=== PATIENT | female | born 1985 | race Caucasian/White ===

== ENCOUNTER 2021-03-31 12:31 | Outpatient (REF) | payer MEDICAID, SELFPAY ==
--- NOTE | ~2021-03-31 | US_ITS ---
EXAMINATION: US VENOUS ULTRASOUND WITH DOPPLER LOWER EXTREMITY, BILATERAL CLINICAL INFORMATION: New onset bilateral leg edema. COMPARISON: None TECHNIQUE: Ultrasound of the deep veins is performed from the hip to the calf with compression sonography and color and pulse Doppler assessment. Spectral analysis with color-flow imaging is performed. FINDINGS: RIGHT: There is normal venous compression and respiratory variation and augmented flow. The visualized common femoral vein, superficial femoral vein, profunda femoral vein, popliteal vein, and the trifurcation region shows no evidence of deep venous thrombosis. There is no significant popliteal fossa cyst. LEFT: There is normal venous compression and respiratory variation and augmented flow. The visualized common femoral vein, superficial femoral vein, profunda femoral vein, popliteal vein, and the trifurcation region shows no evidence of deep venous thrombosis. There is no significant popliteal fossa cyst. If the patient's symptoms persist, followup ultrasound in 5 days 7 days might be of value to exclude proximal propagation from a non-visualized calf vein. US/US venous duplex LE BI IMPRESSION: No evidence of deep venous thrombosis in the visualized veins of the bilateral lower extremities.
== END 2021-03-31 12:32 | disposition home or self-care (01) ==
LOC: HO.HMGCX 12:31
PROVIDERS: Visit Provider Emergency Medicine
DX: R60.0 Localized edema (principal)
CPT/HCPCS: 93970

== ENCOUNTER 2021-06-09 18:01 | Emergency (ER) | payer MEDICAID, SELFPAY ==
[2021-06-09 21:25] VITALS: BP 126/85; PULSE 80; RESP 18; TEMP 36.8; O2SAT 96; BMI 31.7
[2021-06-10] MEDS: Acetaminophen 325 MG TABLET 975 MG PO (06:11)
[2021-06-10] MEDS: Ketorolac Tromethamine 30 MG/ML VIAL 15 MG IM (06:11)
[2021-06-10] MEDS: Lidocaine 4 % Patch ADH..PATCH 1 PATCH TRANSDERMA (06:12)
--- NOTE | 2021-06-10 06:16 | ED_ITS ---
HPI - Back Pain/Injury General Chief Complaint: Back Pain/Injury Stated Complaint: back pain Time Seen by Provider: 06/10/21 06:02 Source: patient Mode of arrival: ambulatory History of Present Illness HPI Narrative: 36-year-old female who presents with acute on chronic left lower back pain that she states has intermittently been radiating into the posterior aspect of her left lower extremity without weakness and denies any numbness in t he groin area or bowel or bladder issues. In addition, patient denies any fever, chills and is otherwise asymptomatic. Related Data Allergies Allergy/AdvReac Type Severity Reaction Status Date / Time No Known Allergies Allergy Verified 06/09/21 21:24 [No Known Allergies*] Review of Systems Review of Systems: Pertinent positives and negatives as stated in HPI 10 point review of systems otherwise negative. [facility] Past Medical History Source: nursing notes reviewed Medical History No pertinent past medical history Social History Social History Advance Directives: No Advance Directives Information Provided: Yes Patient : No Physical Exam Vital Signs: Vital Signs: Last Vital Signs Temp 98.2 F 06/09/21 21:25 Pulse 80 06/09/21 21:25 Resp 18 06/09/21 21:25 BP 126/85 06/09/21 21:25 Pulse Ox 96 06/09/21 21:25 BMI result Body Mass Index 31.7 VITAL SIGNS: Reviewed. GENERAL: Well developed, well nourished, in no acute distress. HEAD: Normocephalic/atraumatic EYES: PERRLA, EOMI OROPHARYNX: no oral lesions noted, posterior pharynx clear LUNGS: Normal breath sounds. No adventitious sounds or accessory muscle use. SpO2<96> CARDIOVASCULAR: Regular rate and rhythm without noted murmurs ABDOMEN: Soft, non-tender, non-distended with bowel sounds. BACK: Left lower back discomfort on palpation and tenderness over sciatic area but otherwise straight leg test is negative and there are palpable DP/PT with good sensation. NEUROLOGIC: Alert and oriented x 4. Strength and sensation to light touch were grossly intact x 4. Course Course Course Narrative: 36-year-old female with history and clinical presentation consistent with acute on chronic exacerbation lower back pain with sciatica and no clinical concern for cauda equina, UTI or infectious process. Patient received combination analgesics and on re-evaluation states that she has had significant improvement in her discomfort. Discharge Plan Discharge Clinical Impression: Back pain, Sciatica Patient Disposition: Home, Self-Care Instructions: Back Pain (ED), Lower Back Exercises (ED) Additional Instructions: 1. Tylenol 1000 mg, por v?a oral, cada 6 horas seg?n sea necesario para controlar el dolor. No excedas 4000 mg en 24 horas. 2. Parche de lidoca?na, est? disponible sin receta y debe aplicarse en el ?tamanna de m?xima sensibilidad barbara se indica en el empaque exterior. 3. Ibuprofeno 400 mg, por v?a oral con leche o alimentos, cada 6 horas seg?n sea necesario para controlar el dolor. 4. Kyle un seguimiento con fried proveedor de atenci?n primaria en los pr?ximos 1 a 2 d?as para dmitry reevaluaci?n adicional para el manejo ambulatorio. Regrese a la camilo de emergencias por un empeoramiento lana de los s?ntomas. Stand Alone Forms: Work/School Release Print Language: Khmer
== END 2021-06-10 06:29 | disposition home or self-care (01) ==
PROVIDERS: Emergency Provider Student in an Organized Health Care Education/Training Program
DX: M54.40 Lumbago with sciatica, unspecified side (principal)
CPT/HCPCS: 96372; 99283; 99284; J1885

== ENCOUNTER 2021-08-25 08:35 | Outpatient (REF) | payer MEDICAID, SELFPAY ==
--- NOTE | ~2021-08-25 | XR_ITS ---
EXAMINATION: XR HIP, LEFT CLINICAL INFORMATION: Pain left hip COMPARISON: None TECHNIQUE: Two views of the left hip. FINDINGS: There is no visible acute fracture, dislocation or subluxation. No bony erosive changes or loose bodies. The soft tissues are normal XR/XR hip LT min 2V IMPRESSION: Unremarkable left hip exam
--- NOTE | ~2021-08-25 | XR_ITS ---
EXAMINATION: XR LUMBOSACRAL SPINE CLINICAL INFORMATION: Pain COMPARISON: None TECHNIQUE: Three views of the lumbosacral spine. FINDINGS: Bone alignment is normal. No fracture or dislocation is seen. There is a prominent left L5 transverse process and degenerative change at the articulation with the left side of the sacrum. There may be mild disc space narrowing at L5-S1. Disc spaces are otherwise normal. There is lower lumbar spine facet arthritis. XR/XR lumbar spine 2-3V IMPRESSION: Mild degenerative changes.
== END 2021-08-25 08:36 | disposition home or self-care (01) ==
LOC: HO.XRAY 08:35
PROVIDERS: PCP Internal Medicine; Visit Provider Internal Medicine
DX: M25.552 Pain in left hip (principal); M54.50 Low back pain, unspecified
CPT/HCPCS: 72100; 73502

== ENCOUNTER 2021-10-13 10:08 | Outpatient (REF) | payer MEDICAID, SELFPAY ==
--- NOTE | ~2021-10-13 | US_ITS ---
EXAMINATION: US ABDOMEN COMPLETE CLINICAL INFORMATION: Fatty liver. COMPARISON: None. TECHNIQUE: Real-time imaging of the abdominal viscera. FINDINGS: PANCREAS: Normal. ABDOMINAL AORTA: The proximal, mid, and distal segments are normal in caliber. INFERIOR VENA CAVA: Visualized portions are normal. LIVER: Liver echotexture is increased. The liver is slightly enlarged. There is a hypoechoic area adjacent to the gallbladder, a characteristic location of focal fatty sparing. No other focal hepatic lesion. There is no intrahepatic biliary duct dilatation seen. GALLBLADDER: Normal. The gallbladder is physiologically distended without evidence of stones, sludge, polyps, wall thickening or pericholecystic fluid. COMMON BILE DUCT: Upper normal in caliber measuring 0.7 cm in diameter. RIGHT KIDNEY: Normal. No hydronephrosis, focal parenchymal lesion or renal calculi. The kidney measures 12.2 cm in maximum dimension. LEFT KIDNEY: There is question of a 1.5 x 2 cm hypoechoic lesion in the central mid pole. No hydronephrosis. No renal calculi.. The kidney measures 11.2 cm in maximum dimension. SPLEEN: Normal. The spleen measures 10.2 cm in maximum dimension. FREE FLUID: None. US/US abdomen complete IMPRESSION: Enlarged echogenic liver probably representing fatty infiltration. Question 1.5 x 2 cm hypoechoic lesion in the central mid pole of the left kidney. Follow-up CT or MRI kidneys with and without contrast is recommended.
== END 2021-10-13 10:09 | disposition home or self-care (01) ==
LOC: HO.US 10:08
PROVIDERS: Visit Provider Internal Medicine
DX: K76.0 Fatty (change of) liver, not elsewhere classified (principal)
CPT/HCPCS: 76700

== ENCOUNTER 2021-11-20 10:50 | Outpatient (REF) | payer MEDICAID, SELFPAY ==
--- NOTE | ~2021-11-20 | CT_ITS ---
EXAMINATION: CT ABDOMEN AND PELVIS WITHOUT AND WITH CONTRAST CLINICAL INFORMATION: Question left renal lesion COMPARISON: Abdominal ultrasound October 2021 TECHNIQUE: Multidetector volumetric imaging was performed of the abdomen and pelvis before and after the IV administration of 85 mL of Omnipaque 300 intravenous contrast. Sagittal and coronal reformatted images were obtained on the technologist's workstation. This CT examination was performed using dose optimization techniques as appropriate, variously including the following: *Automated exposure control *Adjustment of mA and/or kV according to patient size (this includes techniques or standardized protocols for targeted exams where dose is matched to indication/reason for exam; i.e. extremities or head) *Use of iterative reconstruction technique DLP: 648 mGy-cm FINDINGS: LUNG BASES: There is a 6 mm right lower lobe nodule adjacent to the diaphragmatic pleural surface axial image 4 series 8. The pancreas are otherwise clear. LIVER, GALLBLADDER, AND BILIARY TREE: The liver is the liver is enlarged and low in attenuation suggestive of fatty infiltration. No focal liver lesion or biliary duct dilatation. Normal gallbladder. PANCREAS: Unremarkable SPLEEN: Unremarkable ADRENAL GLANDS: 1 x 1.5 cm low-attenuation left adrenal lesion. This has negative Hounsfield units without contrast suggestive of a benign lipid rich adenoma. The right adrenal gland is normal. KIDNEYS AND URETERS: The kidneys are normal in size, shape, and attenuation. No hydronephrosis, hydroureter, or calculi seen. No perinephric stranding. BLADDER: Unremarkable GASTROINTESTINAL TRACT: The small and large bowel are unremarkable. The appendix is unremarkable. ABDOMINAL WALL: Small hernia containing fat. LYMPH NODES: Normal VASCULAR: Unremarkable PELVIC VISCERA: Unremarkable OSSEOUS STRUCTURES: Unremarkable CT/CT abdomen pelvis wo/w con IMPRESSION: Normal-appearing kidneys. No renal mass. Enlarged fatty liver. Small left adrenal lipid rich adenoma. 6 mm right lower lobe nodule. Follow-up chest CT should be considered. Fleischner guidelines were followed.
[2021-11-20] MEDS: iohexoL 300 MG/ML 100 ML INFUS..BTL 85 ML IV (12:38)
== END 2021-11-20 10:51 | disposition home or self-care (01) ==
LOC: HO.CT 10:50
PROVIDERS: PCP Internal Medicine; Visit Provider Internal Medicine
DX: N28.9 Disorder of kidney and ureter, unspecified (principal)
CPT/HCPCS: 74178; Q9967

== ENCOUNTER → 2022-01-22 12:37 | Outpatient (BNVA) | payer MEDICAID, SELFPAY | PROVIDERS: PCP Internal Medicine; Visit Provider Internal Medicine Endocrinology, Diabetes & Metabolism | DX: D35.00 Benign neoplasm of unspecified adrenal gland (principal) | CPT/HCPCS: 99202 ==

== ENCOUNTER 2022-01-23 06:36 | Outpatient (REF) | payer MEDICAID, SELFPAY ==
[2022-01-25 14:16] LABS: DHEA Sulfate 161 mcg/dL (19-237)
[2022-01-28 10:57] LABS: Metanephrine, Free <25 pg/mL (<=57); Normetanephrines, Free 83 pg/mL (<=148); Total Metanephrine, Free 83 pg/mL (<=205)
== END 2022-01-23 06:37 | disposition home or self-care (01) ==
LOC: HO.LAB 06:36
PROVIDERS: PCP Internal Medicine; Visit Provider Internal Medicine Endocrinology, Diabetes & Metabolism
DX: D35.00 Benign neoplasm of unspecified adrenal gland (principal)
CPT/HCPCS: 36415; 82627; 83498; 83835

== ENCOUNTER 2022-01-27 07:45 | Outpatient (REF) | payer MEDICAID, SELFPAY ==
[2022-01-27 09:57] LABS: Cortisol Random < 1.0 ug/dL
[2022-02-04 12:37] LABS: Dexamethasone 281 ng/dL
== END 2022-01-27 07:46 | disposition home or self-care (01) ==
LOC: HO.LAB 07:45
PROVIDERS: PCP Internal Medicine; Visit Provider Internal Medicine Endocrinology, Diabetes & Metabolism
DX: D35.00 Benign neoplasm of unspecified adrenal gland (principal)
CPT/HCPCS: 36415; 80299; 82533

== ENCOUNTER → 2022-07-30 11:48 | Outpatient (BNVA) | payer MEDICAID, SELFPAY | PROVIDERS: PCP Internal Medicine; Visit Provider Internal Medicine Endocrinology, Diabetes & Metabolism | DX: D35.02 Benign neoplasm of left adrenal gland (principal) | CPT/HCPCS: 99212 ==

== ENCOUNTER 2022-08-12 10:01 | Outpatient (REF) | payer MEDICAID, SELFPAY ==
--- NOTE | ~2022-08-12 | CT_ITS ---
EXAMINATION: CT ABDOMEN WITHOUT CONTRAST CLINICAL INFORMATION: Endometrial enlargement. COMPARISON: None TECHNIQUE: Contiguous axial thin section helical images of the abdomen were performed without contrast. The data set was reformatted in the coronal and sagittal planes and reviewed on an independent workstation. This CT examination was performed using dose optimization techniques as appropriate, variously including the following: *Automated exposure control *Adjustment of mA and/or kV according to patient size (this includes techniques or standardized protocols for targeted exams where dose is matched to indication/reason for exam; i.e. extremities or head) *Use of iterative reconstruction technique DLP: 326 mGy-cm FINDINGS: LUNG BASES: There is a 6 mm nodule right lateral basal segment. Otherwise lung bases are clear. The heart size is normal. LIVER, GALLBLADDER, BILIARY TREE: The liver is diffusely attenuated with normal size and contour. No focal lesion or intrahepatic ductal dilatation seen. No radiopaque gallstones or wall thickening. PANCREAS: The pancreas is unremarkable. SPLEEN: The spleen is normal size and unremarkable. ADRENAL GLANDS AND KIDNEYS: There is a left adrenal lesion measuring 1.4 x 1.4 x 1.9 cm and -8 Hounsfield units consistent with benign adenoma. The right adrenal gland is normal. No contrast was injected due to benign process. Both kidneys are normal size, shape and position. No radiopaque calculi seen. There is no hydronephrosis. BOWEL LOOPS: Visualized bowel loops are unremarkable. LYMPH NODES: Normal. VASCULAR: Unremarkable. BONES: No aggressive lytic or sclerotic process seen. CT/CT abdomen wo IV con IMPRESSION: 1. Benign left adrenal adenoma. 2. Mild hepatic steatosis without focal lesion. 3. There is a 6 mm nodule right lateral basal segment. It is unchanged to previous CT exam 11/20/2021. Recommend yearly followup. Fleischner guidelines were followed.
== END 2022-08-12 10:02 | disposition home or self-care (01) ==
LOC: HO.CT 10:01
PROVIDERS: Visit Provider Internal Medicine Endocrinology, Diabetes & Metabolism
DX: D35.00 Benign neoplasm of unspecified adrenal gland (principal)
CPT/HCPCS: 74150

== ENCOUNTER 2023-01-10 19:52 | Emergency (ER) | payer MEDICAID, SELFPAY ==
--- NOTE | 2023-01-10 | ECG_ITS ---
Test Reason : CHEST PAIN Blood Pressure : / mmHG Vent. Rate : 092 BPM Atrial Rate : 092 BPM P-R Int : 174 ms QRS Dur : 096 ms QT Int : 358 ms P-R-T Axes : 032 015 052 degrees QTc Int : 442 ms Normal sinus rhythm Incomplete right bundle branch block Borderline ECG No previous ECGs available Referred By: Generic ED Physician Electronically Signed By:JONA HERNANDEZ
--- NOTE | ~2023-01-10 | XR_ITS ---
EXAMINATION: XR CHEST CLINICAL INFORMATION: Chest pain COMPARISON: None available. TECHNIQUE: 2 views of the chest were obtained. FINDINGS: No acute finding. The lung cantor are grossly clear. No infiltrate. No effusion. The cardiac silhouette is within normal limits. The hilar regions do not appear pathologically enlarged. XR/XR chest 2V IMPRESSION: No acute finding.
[2023-01-10 20:00] VITALS: BP 131/67; PULSE 89; RESP 20; TEMP 36.4; O2SAT 99; BMI 30.1
--- NOTE | 2023-01-10 20:05 | ED_ITS ---
HPI - Chest Pain General Chief Complaint: Chest Pain Stated Complaint: chest pain Time Seen by Provider: 01/10/23 21:07 Source: patient Mode of arrival: ambulatory Limitations: no limitations History of Present Illness HPI narrative: Patient with no known coronary artery disease been having sharp pain in the left 2nd costal cartilage since 15:00 today pain is sharp in character comes and goes, get worse on movements no shortness of breath no palpitation no radiation of the pain Related Data Previous Rx's Medication Instructions Recorded dexamethasone 1 mg tablet 1 mg PO ONCE #1 tab 01/22/22 ibuprofen 600 mg tablet 600 mg PO Q6H PRN fever or pain 01/10/23 #30 tabs Allergies Allergy/AdvReac Type Severity Reaction Status Date / Time No Known Allergies Allergy Verified 01/10/23 20:00 [No Known Allergies*] Review of Systems Review of Systems: Yes all other systems are reviewed and are negative [facility] Past Medical History Medical History Adrenal adenoma No pertinent past medical history Surgical History History of biopsy History of tubal ligation Family History Family History Mother Family history of thyroid problem Father High blood pressure Social History Social History Household Members: Family Alcohol intake: current Alcohol intake frequency: does not drink Patient Tobacco Use Status: Former Tobacco user Physical Exam Vital Signs: Vital Signs: Last Vital Signs Temp 98.1 F 01/10/23 20:56 Pulse 90 01/10/23 20:56 Resp 17 01/10/23 20:56 BP 120/72 01/10/23 20:56 Pulse Ox 95 01/10/23 20:56 O2 Del Method Room Air 01/10/23 20:56 BMI result Body Mass Index 30.1 Appearance: Alert. Oriented X3. No acute distress. Eyes: PERRLA, No Nystagmus ENT: Pharynx normal. Oral Mucosa moist Neck: Normal inspection. Neck supple. CVS: Normal heart rate and rhythm. Pulses normal. Left 2nd intercostal space tenderness Respiratory: No respiratory distress. Equal air entry bilateral, no wheezing/rales/rhonchi Abdomen: Soft and nontender. Bowel sounds are present, no mass palpable, no CVA tenderness Skin: Skin warm and dry. Normal skin color. Normal skin turgor. Extremities: No lower extremity edema. No calf tenderness Neuro: Oriented X 3. Course Course Course Narrative: This is a rapid medical exam. Deferred additional HPI, ROS, PE to primary provider, 37 yo female with no known medical history here with chest pain, shortness, cough, intermittent since 3pm. Will check labs, CXR, EKG. VSS Medical Decision Making Medical Decision Making [facility] Narrative: Patient with atypical sharp pain heart score of 0 initial high sensitive troponin negative normal EKG pain is reproducible likely musculoskeletal and discharge patient home Differential Diagnosis Differential Diagnoses: The differential diagnosis associated with the presentation includes Atypical chest pain/costochondritis/ACS/pleurisy Lab Data [facility] Lab Attestation statement: I reviewed the patient's lab results. 01/10/23 20:12 01/10/23 20:11 Labs: Lab Results 01/10/23 01/10/23 01/10/23 Range/Units 20:11 20:11 20:11 WBC (4.8-10.8) X10*3/uL RBC (4.20-5.50) X10*6/uL Hgb (12.0-16.0) g/dl Hct (37.0-47.0) % MCV (80.0-98.0) fL MCH (27.0-33.0) pg MCHC (31.0-35.0) g/dl RDW (11.0-16.0) % Plt Count (160-400) X10*3/uL MPV (9.4-12.3) fL Immature Gran % (Auto) (0.0-0.4) % Neut % (Auto) (45-73) % Lymph % (Auto) (20-40) % [place] % (Auto) (2-11) % Eos % (Auto) (0-4) % Baso % (Auto) (0-2) % Lymph # (Auto) (1.2-4.9) X10*3/uL [place] # (Auto) (0.1-1.2) X10*3/uL Eos # (Auto) (0.0-0.4) X10*3/uL Baso # (Auto) (0.0-0.2) X10*3/uL Abs Immat Gran (auto) (0.00-0.03) X10*3/uL Absolute Neuts (auto) (2.0-8.3) x10*3/uL Absolute Nucleated RBC (0.0-0.012) X10*3/uL Nucleated RBC % (auto) (0.0-0.2) /100WBC PT 12.1 (11.1-13.3) SEC INR 1.0 (0.9-1.1) Sodium 141 (135-145) mmol/L Potassium 3.8 (3.3-5.1) mmol/L Chloride 106 (96-108) mmol/L Carbon Dioxide 23 (22-29) mmol/L Anion Gap 16 (12-20) BUN 12 (9-16) mg/dL Creatinine 0.66 (0.5-1.4) mg/dL Estim Creat Clear Calc 112.5 Estimated GFR > 60 Random Glucose 114 (60-115) mg/dL Calcium 9.6 (8.4-10.2) mg/dL Magnesium 2.1 (1.6-2.6) mg/dL Total Bilirubin 0.3 (0.0-1.0) mg/dL Direct Bilirubin 0.1 (0.0-0.5) mg/dL AST 32 H (5-31) U/L ALT 69 H (0-31) U/L Alkaline Phosphatase 62 (39-117) U/L Troponin I High Sens < 2.7 (<3.5-17.0) ng/L Total Protein 7.6 (6.5-8.0) g/dL Albumin 4.2 (3.5-5.0) g/dL 01/10/23 Range/Units 20:12 WBC 9.5 (4.8-10.8) X10*3/uL RBC 4.72 (4.20-5.50) X10*6/uL Hgb 13.4 (12.0-16.0) g/dl Hct 40.6 (37.0-47.0) % MCV 86.0 (80.0-98.0) fL MCH 28.4 (27.0-33.0) pg MCHC 33.0 (31.0-35.0) g/dl RDW 12.2 (11.0-16.0) % Plt Count 302 (160-400) X10*3/uL MPV 8.6 L (9.4-12.3) fL Immature Gran % (Auto) 0.6 H (0.0-0.4) % Neut % (Auto) 60.8 (45-73) % Lymph % (Auto) 28.8 (20-40) % [place] % (Auto) 7.0 (2-11) % Eos % (Auto) 2.3 (0-4) % Baso % (Auto) 0.5 (0-2) % Lymph # (Auto) 2.7 (1.2-4.9) X10*3/uL [place] # (Auto) 0.7 (0.1-1.2) X10*3/uL Eos # (Auto) 0.2 (0.0-0.4) X10*3/uL Baso # (Auto) 0.1 (0.0-0.2) X10*3/uL Abs Immat Gran (auto) 0.06 H (0.00-0.03) X10*3/uL Absolute Neuts (auto) 5.8 (2.0-8.3) x10*3/uL Absolute Nucleated RBC 0.000 (0.0-0.012) X10*3/uL Nucleated RBC % (auto) 0.0 (0.0-0.2) /100WBC PT (11.1-13.3) SEC INR (0.9-1.1) Sodium (135-145) mmol/L Potassium (3.3-5.1) mmol/L Chloride (96-108) mmol/L Carbon Dioxide (22-29) mmol/L Anion Gap (12-20) BUN (9-16) mg/dL Creatinine (0.5-1.4) mg/dL Estim Creat Clear Calc Estimated GFR Random Glucose (60-115) mg/dL Calcium (8.4-10.2) mg/dL Magnesium (1.6-2.6) mg/dL Total Bilirubin (0.0-1.0) mg/dL Direct Bilirubin (0.0-0.5) mg/dL AST (5-31) U/L ALT (0-31) U/L Alkaline Phosphatase (39-117) U/L Troponin I High Sens (<3.5-17.0) ng/L Total Protein (6.5-8.0) g/dL Albumin (3.5-5.0) g/dL Independent Interpretation I performed an independent interpretation of an: EKG Interpretation: Normal sinus rhythm heart rate 92 beats per minute normal interval normal axis incomplete right bundle-branch block no acute ischemic changes Discharge Plan Discharge Clinical Impression: Costalchondritis Patient Disposition: Home, Self-Care Instructions: Costochondritis (ED) Additional Instructions: your chest pain is likely from inflammation of the cartilage Take ibuprofen for pain Prescriptions: New ibuprofen 600 mg tablet 600 mg PO Q6H PRN (Reason: fever or pain) Qty: 30 0RF No Action dexamethasone 1 mg tablet 1 mg PO ONCE Qty: 1 0RF
[2023-01-10 20:16] LABS: MANUAL DIFF FLAG NO
[2023-01-10 20:22] LABS: Prothrombin Time 12.1 SEC (11.1-13.3)
[2023-01-10 20:26] LABS: Basophils Absolute Auto 0.1 X10*3/uL (0.0-0.2); Basophils Percent Auto 0.5 % (0-2); Eosinophils Absolute Auto 0.2 X10*3/uL (0.0-0.4); Eosinophils Percent Auto 2.3 % (0-4); Hematocrit 40.6 % (37.0-47.0); Hemoglobin 13.4 g/dl (12.0-16.0); Imm Gran Abs Auto 0.06 X10*3/uL (0.00-0.03); Imm Gran Pct Auto 0.6 % (0.0-0.4); Lymphocytes Absolute Auto 2.7 X10*3/uL (1.2-4.9); Lymphocytes Percent Auto 28.8 % (20-40); Mean Corpuscular Hemoglobin 28.4 pg (27.0-33.0); Mean Platelet Volume 8.6 fL (9.4-12.3); Monocytes Absolute Auto 0.7 X10*3/uL (0.1-1.2); Neutrophils Absolute Auto 5.8 x10*3/uL (2.0-8.3); Neutrophils Percent Auto 60.8 % (45-73); Platelet Count 302 X10*3/uL (160-400); Red Blood Count 4.72 X10*6/uL (4.20-5.50); Red Cell Distribution Width 12.2 % (11.0-16.0); White Blood Count 9.5 X10*3/uL (4.8-10.8)
[2023-01-10 20:36] LABS: Alanine Aminotransferase 69 U/L (0-31); Albumin Level 4.2 g/dL (3.5-5.0); Alkaline Phosphatase 62 U/L (39-117); Anion Gap 16 (12-20); Aspartate Amino Transferase 32 U/L (5-31); Bilirubin Direct 0.1 mg/dL (0.0-0.5); Bilirubin Total 0.3 mg/dL (0.0-1.0); Blood Urea Nitrogen 12 mg/dL (9-16); Calcium 9.6 mg/dL (8.4-10.2); Carbon Dioxide 23 mmol/L (22-29); Chloride 106 mmol/L (96-108); Creatinine Clr Calc Pharmacy 112.5; Estimated Glomerular Filt Rate > 60; Glucose Random 114 mg/dL (60-115); Magnesium 2.1 mg/dL (1.6-2.6); Potassium 3.8 mmol/L (3.3-5.1); Sodium 141 mmol/L (135-145); Total Protein 7.6 g/dL (6.5-8.0)
[2023-01-10 20:44] LABS: Troponin-I High Sensitivity < 2.7 ng/L (<3.5-17.0)
[2023-01-10 20:56] VITALS: BP 120/72; PULSE 90; RESP 17; TEMP 36.7; O2SAT 95
[2023-01-10 22:22] VITALS: BP 124/75; PULSE 83; RESP 17; TEMP 36.2; O2SAT 100
[2023-01-10] MEDS: Ibuprofen 600 MG TABLET PO (22:29)
--- NOTE | 2023-01-10 22:30 | PC.NURSE ---
Pt a&o, no sign distress, Medicated per mar upon discharge, Reviewed discharge instructions with pt, pt verbalized understanding.
== END 2023-01-10 22:32 | disposition home or self-care (01) ==
PROVIDERS: Nurse Practitioner Family; Emergency Provider Internal Medicine; PCP Internal Medicine
DX: R07.89 Other chest pain (principal); M94.0 Chondrocostal junction syndrome [Tietze]; Z79.899 Other long term (current) drug therapy
CPT/HCPCS: 36415; 71046; 80048; 80076; 83735; 84484; 85025; 85610; 93005; 99284; 99285

== ENCOUNTER → 2023-01-10 20:02 | Outpatient (BNV) | payer MEDICAID, SELFPAY | PROVIDERS: Emergency Provider Internal Medicine; PCP Internal Medicine; Visit Provider Internal Medicine | DX: R07.9 Chest pain, unspecified (principal) | CPT/HCPCS: 93010 ==

== ENCOUNTER 2023-05-12 09:02 | Outpatient (REF) | payer MEDICAID, SELFPAY ==
--- NOTE | ~2023-05-12 | MM_ITS ---
EXAMINATION: MM SCREENING DIGITAL BREAST TOMOSYNTHESIS, BILATERAL CLINICAL INFORMATION: Screening. Asymptomatic. COMPARISON: Mammography: This is a baseline study. TECHNIQUE: Digital breast tomosynthesis is performed in both the craniocaudal and mediolateral oblique views along with computer-aided detection (CAD). Synthesized 2D images are generated from the tomosynthesis. FINDINGS: The breasts are heterogeneously dense, which may obscure small masses (ACR BI-RADS breast composition Category c). There are no significant masses, abnormal calcifications, or other abnormalities. MM/MM tomosynthesis screening BI IMPRESSION: No mammographic evidence of malignancy. ASSESSMENT: BI-RADS BI-RADS 1 - Negative RECOMMENDATION: Routine annual mammography screening. 1 year F/U This examination should not preclude the clinical evaluation of a suspicious palpable abnormality. This patient's information was entered into a reminder system with a target due date for their next mammogram.
== END 2023-05-12 09:03 | disposition home or self-care (01) ==
LOC: HO.MAMMO 09:02
PROVIDERS: Visit Provider Internal Medicine
DX: Z12.31 Encounter for screening mammogram for malignant neoplasm of breast (principal)
CPT/HCPCS: 77063; 77067

== ENCOUNTER → 2023-05-12 09:30 | Outpatient (BNV) | payer MEDICAID, SELFPAY | PROVIDERS: Visit Provider Radiology Diagnostic Radiology | DX: Z12.31 Encounter for screening mammogram for malignant neoplasm of breast (principal) | CPT/HCPCS: 77063; 77067 ==

== ENCOUNTER 2023-06-17 15:52 | Outpatient (AMB) | payer MEDICAID, SELFPAY ==
--- NOTE | 2023-06-17 15:54 | MHC.OFFVIS ---
Intake Vital Signs 06/17/23 15:55 Height 5 ft 3 in Weight 175 lb 14.862 oz BMI 31.2 BP 112/68 Blood Pressure Location Lt brachial Position Sitting Pulse 88 Pulse Source Pulse Oximeter Intake Visit Reasons: f/u adrenal adenoma Intake Note: Patient present today for adrenal adenoma follow up visit. Senior Mechanical Designer Required: Yes Senior Mechanical Designer Language: Dampener Name: [facility] medical staff Information Interpreted: non-clinical & clinical Accompanied by: Self / Same As Patient Allergies No Known Allergies [No Known Allergies*] Allergy (Verified 06/17/23 16:00) Medication List - Last Reconciled 06/17/23 by Abraham Barkley MD dexamethasone 1 mg PO ONCE ibuprofen 600 mg PO Q6H PRN HPI HPI Comments History of Present Illness Details 38 YO F with who is seen in consultation at the request of PCP for adrenal incidentaloma. Had CT abdomen/pelvis 11/20/2021 for which revealed low-density 1 cm x 1.5 cm. Has episodes of palpitations infrequently . No history of spells with headache, flushing, diaphoresis, abdominal pain or diarrhea. Weight gain of 10 lbs , frequent infections, easy bruisability, development of violaceous striae. No History of HTN, . No history of anticoagulant use. Denies any weight loss, orthostatic symptoms, hypoglycemia. No history of malignancy or TB. Imaging: Labs: Consistent with non secretion PFSH Medical History Adrenal adenoma No pertinent past medical history Surgical History History of biopsy History of tubal ligation Family History Mother Family history of thyroid problem Father High blood pressure Social History Household Members: Family Alcohol intake: current Alcohol intake frequency: does not drink Patient Tobacco Use Status: Former Tobacco user Physical Exam Const Other: No cushingoid features. Assessment & Plan Assessment & Plan (1) Adrenal adenoma: Code(s): D35.00 - Benign neoplasm of unspecified adrenal gland Plan: This is a 36-year-old female with a history of left adrenal adenoma of low-density. Adenoma has been non secretory. There have been 2 [address] scan of which show very low-density consistent with benign adenoma The plan is to repeat 1 mg dexamethasone suppression test with cortisol and dexamethasone level Orders: Orders Dexamethasone 1 Week D35.00 - Benign neoplasm of unspecified adrenal gland Cortisol Random 1 Week D35.00 - Benign neoplasm of unspecified adrenal gland Medications: New dexamethasone 1 mg PO ONCE 1 tab 0RF Coding Level of Care Code Est Pt Level 3 (63018) Diagnoses Adrenal adenoma D3.00
[2023-06-17 15:55] VITALS: BP 112/68; PULSE 88; BMI 31.2
== END 2023-06-17 16:08 | disposition home or self-care (01) ==
PROVIDERS: PCP Internal Medicine; Visit Provider Internal Medicine Endocrinology, Diabetes & Metabolism
DX: D35.00 Benign neoplasm of unspecified adrenal gland (principal)
CPT/HCPCS: 99213

== ENCOUNTER → 2023-06-17 15:52 | Outpatient (BNVA) | payer MEDICAID, SELFPAY | PROVIDERS: Visit Provider Internal Medicine Endocrinology, Diabetes & Metabolism | DX: D35.00 Benign neoplasm of unspecified adrenal gland (principal) | CPT/HCPCS: 99212 ==

== ENCOUNTER 2023-07-06 08:02 | Outpatient (REF) | payer MEDICAID, SELFPAY ==
[2023-07-06 09:38] LABS: Cortisol Random < 1.0 ug/dL
[2023-07-16 15:03] LABS: Dexamethasone 264 ng/dL
== END 2023-07-06 08:03 | disposition home or self-care (01) ==
LOC: HO.LAB 08:02
PROVIDERS: PCP Internal Medicine; Visit Provider Internal Medicine Endocrinology, Diabetes & Metabolism
DX: D35.00 Benign neoplasm of unspecified adrenal gland (principal)
CPT/HCPCS: 36415; 80299; 82533

== ENCOUNTER 2023-10-07 14:33 | Outpatient (REF) | payer MEDICAID, SELFPAY ==
[2023-10-09 19:58] LABS: TS Negative Control Passed; TS Panel A 0; TS Panel B 1; TS Positive Control Passed; TSpotTB Negative (Negative)
== END 2023-10-07 14:34 | disposition home or self-care (01) ==
LOC: HO.HHCL 14:33
PROVIDERS: Visit Provider Internal Medicine
DX: Z00.00 Encounter for general adult medical examination without abnormal findings (principal); Z11.1 Encounter for screening for respiratory tuberculosis
CPT/HCPCS: 36415; 86481

== ENCOUNTER 2023-11-01 19:59 | Emergency (ER) | payer MEDICAID, SELFPAY ==
--- NOTE | ~2023-11-01 | US_ITS ---
EXAMINATION: US ABDOMEN LIMITED CLINICAL INFORMATION: Right upper quadrant pain. COMPARISON: CT abdomen pelvis dated 08/12/2022. Ultrasound abdomen dated 08/13/2021. TECHNIQUE: Real-time imaging of the right upper quadrant abdominal viscera. FINDINGS: PANCREAS: Normal. LIVER: The liver is normal in size. The liver contour is normal. Parenchymal echogenicity is increased. There is a small calcification within the left lobe measuring approximately 0.8 x 0.7 x 0.3 cm. There is no intrahepatic biliary duct dilatation seen. GALLBLADDER: The gallbladder is physiologically distended without evidence of stones, sludge, polyps, wall thickening or pericholecystic fluid. COMMON BILE DUCT: Normal in caliber measuring 0.3 cm in diameter. RIGHT KIDNEY: No hydronephrosis. No renal calculi or focal parenchymal lesions. The kidney measures 12.2 cm in maximum dimension. FREE FLUID: None. US/US abdomen limited IMPRESSION: The gallbladder is normal in appearance. The liver is steatotic. A small calcification within the left lobe of liver appears similar to that seen on prior CT examination.
[2023-11-01 20:50] VITALS: BP 115/55; PULSE 97; RESP 18; TEMP 36.9; O2SAT 98; BMI 29.6
--- NOTE | 2023-11-01 20:54 | ED_ITS ---
HPI - Abdominal Pain General Chief Complaint: Abdominal Pain Stated Complaint: abd pain Related Data Previous Rx's ?Medication ?Instructions ?Recorded ibuprofen 600 mg tablet 600 mg PO Q6H PRN fever or pain 01/10/23 #30 tabs dexamethasone 1 mg tablet 1 mg PO ONCE #1 tab 06/17/23 Allergies Allergy/AdvReac Type Severity Reaction Status Date / Time No Known Allergies Allergy Verified 11/01/23 20:55 [No Known Allergies*] PMFSH Past Medical History Medical History Adrenal adenoma No pertinent past medical history Surgical History History of biopsy History of tubal ligation Family History Family History Mother Family history of thyroid problem Father High blood pressure Social History Social History Household Members: Family Alcohol intake: current Alcohol intake frequency: does not drink Patient Tobacco Use Status: Former Tobacco user Advance Directives: No Advance Directives Information Provided: No Physical Exam ED Vital Signs: Vital Signs - 24 hr 11/01/23 20:50 11/02/23 01:05 Temperature 98.4 F 98.3 F Pulse Rate 97 87 Respiratory Rate 18 16 Blood Pressure 115/55 L 120/84 Pulse Oximetry 98 99 Oxygen Delivery Method Room Air Room Air BMI result Body Mass Index 29.6 Course Course Course Narrative: This is an RME: Additional HPI, ROS, PE not included below will be deferred to primary provider. RME assessment and note performed by: Lucero Keita PA-C This is a [id number] who presents emergency department for evaluation of abdominal pain since last night. Patient reports that she has had no urinary symptoms, endorsing nausea, no vomiting. No chance of . Plan: Labs, UA, ultrasound Reevaluation(s) Reevaluation #1: Patient left without completing treatment. Medical Decision Making Lab Data 11/01/23 21:07 11/01/23 21:07 Labs: Lab Results 11/01/23 11/02/23 Range/Units 21:07 01:04 WBC 9.4 (4.8-10.8) X10*3/uL RBC 4.87 (4.20-5.50) X10*6/uL Hgb 13.9 (12.0-16.0) g/dl Hct 41.3 (37.0-47.0) % MCV 84.8 (80.0-98.0) fL MCH 28.5 (27.0-33.0) pg MCHC 33.7 (31.0-35.0) g/dl RDW 12.3 (11.0-16.0) % Plt Count 289 (160-400) X10*3/uL MPV 8.6 L (9.4-12.3) fL Immature Gran % (Auto) 0.4 (0.0-0.4) % Neut % (Auto) 57.8 (45-73) % Lymph % (Auto) 32.5 (20-40) % [place] % (Auto) 7.1 (2-11) % Eos % (Auto) 1.8 (0-4) % Baso % (Auto) 0.4 (0-2) % Lymph # (Auto) 3.1 (1.2-4.9) X10*3/uL [place] # (Auto) 0.7 (0.1-1.2) X10*3/uL Eos # (Auto) 0.2 (0.0-0.4) X10*3/uL Baso # (Auto) 0.0 (0.0-0.2) X10*3/uL Abs Immat Gran (auto) 0.04 H (0.00-0.03) X10*3/uL Absolute Neuts (auto) 5.4 (2.0-8.3) x10*3/uL Absolute Nucleated RBC 0.000 (0.0-0.012) X10*3/uL Nucleated RBC % (auto) 0.0 (0.0-0.2) /100WBC Sodium 143 (135-145) mmol/L Potassium 4.3 (3.3-5.1) mmol/L Chloride 108 (96-108) mmol/L Carbon Dioxide 27 (22-29) mmol/L Anion Gap 12 (12-20) BUN 8 L (9-16) mg/dL Creatinine 0.69 (0.5-1.4) mg/dL Estim Creat Clear Calc 109.6 Estimated GFR > 60 Random Glucose 94 (60-115) mg/dL Calcium 9.6 (8.4-10.2) mg/dL Total Bilirubin 0.3 (0.0-1.0) mg/dL Direct Bilirubin 0.1 (0.0-0.5) mg/dL AST 23 (5-31) U/L ALT 46 H (0-31) U/L Alkaline Phosphatase 70 (39-117) U/L Total Protein 7.9 (6.5-8.0) g/dL Albumin 4.4 (3.5-5.0) g/dL Lipase 19 (8-78) U/L Beta HCG, Quant < 2 mIU/mL Urine Color Yellow Urine Appearance Clear Urine pH 7.5 (5.0-9.0) Ur Specific [place] 1.025 (1.005-1.025) Urine Protein Trace (Neg-Trace) mg/dL Urine Glucose (UA) Negative (Negative) mg/dL Urine Ketones Negative (Negative) mg/dL Urine Blood Negative (Negative) Urine Nitrite Negative (Negative) Ur Leukocyte Esterase Moderate (2+) H (Negative) Urine RBC 3-5 H (0-2) /HPF Urine WBC 6-10 H (0-5) /HPF Ur Squamous Epith Cells 3-5 (0-2) /HPF Urine Bacteria 2+ (None Seen) Hyaline Casts 0-2 (0-2) /LPF Discharge Plan Discharge Clinical Impression: Abdominal pain Patient Disposition: Left W/O Completing Treatment Prescriptions: No Action ibuprofen 600 mg tablet 600 mg PO Q6H PRN (Reason: fever or pain) Qty: 30 0RF dexamethasone 1 mg tablet 1 mg PO ONCE Qty: 1 0RF Discharge Date/Time: 11/02/23 02:45
[2023-11-01 21:11] LABS: MANUAL DIFF FLAG NO
[2023-11-01 21:12] LABS: Basophils Percent Auto 0.4 % (0-2); Eosinophils Absolute Auto 0.2 X10*3/uL (0.0-0.4); Eosinophils Percent Auto 1.8 % (0-4); Hematocrit 41.3 % (37.0-47.0); Hemoglobin 13.9 g/dl (12.0-16.0); Imm Gran Abs Auto 0.04 X10*3/uL (0.00-0.03); Imm Gran Pct Auto 0.4 % (0.0-0.4); Lymphocytes Absolute Auto 3.1 X10*3/uL (1.2-4.9); Lymphocytes Percent Auto 32.5 % (20-40); Mean Corpuscular HGB Conc 33.7 g/dl (31.0-35.0); Mean Corpuscular Hemoglobin 28.5 pg (27.0-33.0); Mean Corpuscular Volume 84.8 fL (80.0-98.0); Mean Platelet Volume 8.6 fL (9.4-12.3); Monocytes Absolute Auto 0.7 X10*3/uL (0.1-1.2); Monocytes Percent Auto 7.1 % (2-11); Neutrophils Absolute Auto 5.4 x10*3/uL (2.0-8.3); Neutrophils Percent Auto 57.8 % (45-73); Platelet Count 289 X10*3/uL (160-400); Red Blood Count 4.87 X10*6/uL (4.20-5.50); Red Cell Distribution Width 12.3 % (11.0-16.0); White Blood Count 9.4 X10*3/uL (4.8-10.8)
[2023-11-01 21:28] LABS: Alanine Aminotransferase 46 U/L (0-31); Albumin Level 4.4 g/dL (3.5-5.0); Alkaline Phosphatase 70 U/L (39-117); Anion Gap 12 (12-20); Aspartate Amino Transferase 23 U/L (5-31); Bilirubin Direct 0.1 mg/dL (0.0-0.5); Bilirubin Total 0.3 mg/dL (0.0-1.0); Blood Urea Nitrogen 8 mg/dL (9-16); Calcium 9.6 mg/dL (8.4-10.2); Carbon Dioxide 27 mmol/L (22-29); Chloride 108 mmol/L (96-108); Creatinine Clr Calc Pharmacy 109.6; Estimated Glomerular Filt Rate > 60; Glucose Random 94 mg/dL (60-115); Lipase 19 U/L (8-78); Potassium 4.3 mmol/L (3.3-5.1); Sodium 143 mmol/L (135-145); Total Protein 7.9 g/dL (6.5-8.0)
[2023-11-01 21:35] LABS: HCG Quantitative < 2 mIU/mL
[2023-11-02 01:05] VITALS: BP 120/84; PULSE 87; RESP 16; TEMP 36.8; O2SAT 99
[2023-11-02 01:14] LABS: Appearance Urine Clear; Color Urine Yellow; Glucose Urine UA Negative (Negative); Leukocyte Esterase Urine Moderate (2+) (Negative); Nitrite Urine Negative (Negative); PH 7.5 (5.0-9.0); Specific Gravity - Urine 1.025 (1.005-1.025); UMIC TRIGGER UACC YES; Urine Blood Negative (Negative); Urine Ketones Negative (Negative); Urine Protein Trace mg/dL (Neg-Trace)
[2023-11-02 01:22] LABS: Bacteria Urine 2+ (None Seen); Hyaline Casts Urine 0-2 /LPF (0-2); UACC Culture Trigger YES
== END 2023-11-02 02:45 | disposition left against medical advice (07) ==
PROVIDERS: Physician Assistant Medical; Emergency Provider Emergency Medicine; PCP Internal Medicine
DX: R10.9 Unspecified abdominal pain (principal)
CPT/HCPCS: 36415; 76705; 80048; 80076; 81001; 83690; 84702; 85025; 87086; 99283; 99284

== ENCOUNTER 2023-11-05 16:04 | Outpatient (REF) | payer MEDICAID, SELFPAY ==
[2023-11-05 16:48] LABS: Appearance Urine Clear; Color Urine Yellow; Glucose Urine UA Negative (Negative); Leukocyte Esterase Urine Moderate (2+) (Negative); Nitrite Urine Negative (Negative); PH 5.5 (5.0-9.0); Specific Gravity - Urine 1.025 (1.005-1.025); Urine Blood Trace (Negative); Urine Ketones Negative (Negative); Urine Protein Negative (Neg-Trace)
[2023-11-05 16:54] LABS: UACC Culture Trigger YES
[2023-11-05 16:55] LABS: UMIC TRIGGER UACC YES
[2023-11-05 16:56] LABS: Bacteria Urine 1+ (None Seen); Hyaline Casts Urine 0-2 /LPF (0-2); RBC Urine 0-2 /HPF (0-2)
== END 2023-11-05 16:05 | disposition home or self-care (01) ==
LOC: HO.HHCLNP 16:04
PROVIDERS: Visit Provider Internal Medicine
DX: N39.0 Urinary tract infection, site not specified (principal)
CPT/HCPCS: 81001; 87086

== ENCOUNTER 2024-01-05 17:20 | Outpatient (REF) | payer MEDICAID, SELFPAY ==
[2024-01-06 11:14] LABS: Bacterial Vaginosis PCR POSITIVE (Negative); Candida Group PCR NOT DETECTED (Not Detect); Candida glab krusei PCR NOT DETECTED (Not Detect); Trichomonas vaginalis PCR NOT DETECTED (Not Detect)
[2024-01-08 05:34] LABS: HPV mRNA E6/E7 Not Detected (Not Detected)
[2024-01-10 12:51] LABS: C. trachomatis RNA TMA NOT DETECTED
[2024-01-10 12:52] LABS: N. gonorrhoeae RNA TMA NOT DETECTED; Trichomonas (NAAT) NOT DETECTED
== END 2024-01-05 17:21 | disposition home or self-care (01) ==
LOC: HO.HHCLNP 17:20
PROVIDERS: Visit Provider Advanced Practice Midwife
DX: Z11.3 Encounter for screening for infections with a predominantly sexual mode of transmission (principal)
CPT/HCPCS: 0352U; 36415; 87491; 87591; 87624; 87661; 88175

== ENCOUNTER 2024-01-10 13:28 | Outpatient (REF) | payer MEDICAID, SELFPAY ==
--- NOTE | ~2024-01-10 | US_ITS ---
EXAMINATION: US PELVIS CLINICAL INFORMATION: Dysmenorrhea LMP: One week ago COMPARISON: CT scan abdomen and pelvis 08/12/2022, 11/20/2021 TECHNIQUE: Ultrasound of the pelvis is performed using both transabdominal and transvaginal transducers along with Doppler. Transvaginal imaging is performed due to inadequate visualization transabdominally. FINDINGS: Uterus: The uterus is anteverted and measures 9.2 x 4.6 x 5.4 cm. No focal fibroid The endometrial thickness is 1.1 cm. Adnexa: Both ovaries are visualized. There is normal color flow to the adnexa. There is no ovarian torsion. There is no pelvic ascites or fluid collection. Right ovary measures 2.4 x 1.7 x 1.7 cm. Volume 3.6 mL. Left ovary measures 3.6 x 2.4 x 2.8 cm. Volume 12.7 US/US pelvic and transvaginal IMPRESSION: Normal uterus and ovaries.
== END 2024-01-10 13:29 | disposition home or self-care (01) ==
LOC: HO.US 13:28
PROVIDERS: PCP Internal Medicine; Visit Provider Advanced Practice Midwife
DX: N94.6 Dysmenorrhea, unspecified (principal)
CPT/HCPCS: 76830; 76856

== ENCOUNTER 2024-07-11 15:35 | Outpatient (AMB) | payer MEDICAID, SELFPAY ==
--- NOTE | 2024-07-11 15:34 | A.OFFVIS_ITS ---
Vital Signs 07/11/24 15:37 Height 5 ft 2 in Weight 167 lb 8.821 oz BMI 30.6 BP 131/85 Blood Pressure Location Rt brachial Position Sitting Pulse 94 Pulse Source Pulse Oximeter Intake Visit Reasons: f/u adrenal adenoma Intake Note: [facility] Adrenal Adenoma: Patient stated that is taking supplements: Collagen, Tumeric & Multivitamns Custom Protection Officer Required: Yes Custom Protection Officer Language: Finishing Powder Press Operator Services: Custom Protection Officer Present Custom Protection Officer Name: JAYLEN Contreras/BRIGHT REYNOLDS Accompanied by: Self / Same As Patient Allergies No Known Allergies [No Known Allergies*] Allergy (Verified 07/11/24 15:37) Medication List - Last Reconciled 07/11/24 by Isabell Givens MD ibuprofen 600 mg PO Q6H PRN multivitamin 1 tab PO DAILY HPI Comments Details: 39 YO F with who is seen for follow up of left adrenal incidentaloma. HPI Had CT abdomen/pelvis 11/20/2021 for which revealed low-density 1 cm x 1.5 cm. Left adrenal gland nodule Has episodes of palpitations infrequently . No history of spells with headache, flushing, diaphoresis, abdominal pain or diarrhea. No History of HTN, . No history of anticoagulant use. Denies any , orthostatic symptoms, hypoglycemia. No history of malignancy or TB. Labs 2021 showed normal plasma metanephrine, normetanephrine levels, normal dexamethasone suppression test. Repeat imaging 09/03: Showed stable size of the left adrenal adenoma. Negative eight Hounsfield units. Interval history Labs 07/06/2023 showed cortisol suppressed to less than 1 with dexamethasone suppression was with dexamethasone level of 264. Patient has lost 10 lb in the past year, no unexplained weight gain, no hot easy bruisability, no proximal muscle weakness, she does not have any history of diabetes or hypertension, no fractures Physical exam General: sitting comfortably in no acute distress HEENT: normocephalic/atraumatic Neck: supple, symmetrical Cardiac: normal heart sounds Pulm: normal breath sounds B/L, no added breath sounds Abd: not distended, no tenderness, no abd striae Extremities: no edema, no signs of myxedema Laboratory Tests 01/23/22 01/27/22 07/06/23 06:40 08:04 08:17 DHEA Sulfate 161 Random Cortisol < 1.0 < 1.0 17-Hydroxyprogesterone 22 Plasma Free Metaneph <25 Plasma Free Normeta 83 Plas Total Metaneph 83 Dexamethasone 281 264 *ADDENDUMComparison is done to previous CT 11/20/2021. The left adrenal adenoma measures 1.5 cm and negative Hounsfield units on present exam 08/12/2022 and is unchanged in size or density to last CT abdomen and pelvis exam. CT ABDOMEN WITHOUT CONTRAST 08/12/22 CLINICAL INFORMATION: Endometrial enlargement. COMPARISON: None TECHNIQUE: Contiguous axial thin section helical images of the abdomen were performed without contrast. The data set was reformatted in the coronal and sagittal planes and reviewed on an independent workstation. This CT examination was performed using dose optimization techniques as appropriate, variously including the following: *Automated exposure control *Adjustment of mA and/or kV according to patient size (this includes techniques or standardized protocols for targeted exams where dose is matched to indication/reason for exam; i.e. extremities or head) *Use of iterative reconstruction technique DLP: 326 mGy-cm FINDINGS: LUNG BASES: There is a 6 mm nodule right lateral basal segment. Otherwise lung bases are clear. The heart size is normal. LIVER, GALLBLADDER, BILIARY TREE: The liver is diffusely attenuated with normal size and contour. No focal lesion or intrahepatic ductal dilatation seen. No radiopaque gallstones or wall thickening. PANCREAS: The pancreas is unremarkable. SPLEEN: The spleen is normal size and unremarkable. ADRENAL GLANDS AND KIDNEYS: There is a left adrenal lesion measuring 1.4 x 1.4 x 1.9 cm and -8 Hounsfield units consistent with benign adenoma. The right adrenal gland is normal. No contrast was injected due to benign process. Both kidneys are normal size, shape and position. No radiopaque calculi seen. There is no hydronephrosis. BOWEL LOOPS: Visualized bowel loops are unremarkable. LYMPH NODES: Normal. VASCULAR: Unremarkable. BONES: No aggressive lytic or sclerotic process seen. CT/CT abdomen wo IV con IMPRESSION: 1. Benign left adrenal adenoma. 2. Mild hepatic steatosis without focal lesion. 3. There is a 6 mm nodule right lateral basal segment. It is unchanged to previous CT exam 11/20/2021. Recommend yearly followup. Fleischner guidelines were followed. [facility] Medical History Adrenal adenoma No pertinent past medical history Surgical History History of biopsy History of tubal ligation Family History Mother Family history of thyroid problem Father High blood pressure Social History Household Members: Family Alcohol intake: current Alcohol intake frequency: does not drink Patient Tobacco Use Status: Former Tobacco user Physical Exam Vital Signs: Last Vital Signs Pulse 94 07/11/24 15:37 BP 131/85 07/11/24 15:37 BMI result Body Mass Index 30.6 Assessment & Plan Assessment & Plan (1) Adrenal adenoma: Code(s): D35.00 - Benign neoplasm of unspecified adrenal gland Category: Medical Qualifiers: Laterality: left Qualified Code(s): D35.02 - Benign neoplasm of left adrenal gland Plan: 39-year-old female coming in today for follow up of left adrenal incidentaloma 1.5 cm that remained stable on CT scan in 2022 from imaging in 2021. No need to repeat further imaging for this benign adenoma. In terms of 63 testing, she has had 2 normal dexamethasone suppression test in 2021 in 2023. Normal plasma metanephrine normetanephrine levels in 2021. No history of hypertension hence not evaluated for primary hyperaldosteronism. At this time this is a nonsecretory benign adrenal incidentaloma that does not need further follow up unless patient develops uncontrolled diabetes, develops hypertension, osteoporosis or unexplained weight gain. In that case she can be referred back to us. Plan see above Coding Level of Care Code Est Pt Level 3 (74360) Diagnoses Adenoma of left adrenal gland D35.02 Laterality: left
[2024-07-11 15:37] VITALS: BP 131/85; PULSE 94; BMI 30.6
--- OUTSIDE RECORDS SUMMARY | 2024-07-11 16:26 | XMS_ITS | Clinical Summary ---
Author Organization [employer] Address [address] [facility] [address] [place] [address] Care Team Providers Care Revenue Cycle Specialist Name Role Phone Mariel Perdomo MD Primary Care Provide r Allergies No known active allergies Medications D3 Super Strength 50 MCG (1999) capsuleIndicati ons:Vitamin D deficiency TAKE 1 CAPSULE BY MOUTH EVERY DAY IN THE MORNING 90 capsule 1 4 Active amitriptyline (Elavil) 10 MG tablet Take 1 tablet (10 mg) by mouth at bedtime. 30 tablet 3 3 06/26/19 25 Discontin ued(Thera py completed ) cetirizine (ZyrTEC) 10 MG tabletIndicatio ns:Allergic rhinitis, unspecified seasonality, unspecified trigger Take 1 tablet (10 mg) by mouth Once per day. 30 tablet 2 4 06/26/19 25 Discontin ued(Thera py completed ) fluticasone (Flonase) 50 MCG/ACT nasal sprayIndication s:Allergic rhinitis, unspecified seasonality, unspecified trigger Administer 1 spray into each nostril Once per day. 16 g 2 4 06/26/19 25 Discontin ued(Thera py completed ) famotidine (Pepcid) 20 MG tabletIndicatio ns:Generalized abdominal pain Take 1 tablet (20 mg) by mouth 2 times daily. 60 tablet 4 06/26/19 25 Discontin ued(Thera py completed ) Active Problems Problem Noted Date Diagnosed Date Well adult health check 06/26/2024 Encounter for immunization 06/26/2024 Dietary counseling 06/26/2024 Exercise counseling 06/26/2024 Overweight 06/26/2024 Generalized abdominal pain 11/05/2023 Allergic rhinitis 10/19/2023 Encounter for preventive care 05/04/2023 Assessment & Plan (05/04/2023 3:36 PM EST): See HPI Right foot pain 05/04/2023 Encounter for screening mamm ogram for malignant neoplasm of breast 05/04/2023 Vitamin D deficiency 05/04/2023 Overweight (BMI 25.0-29.9) 01/21/2023 Elevated LFTs 01/12/2023 Assessment & Plan (01/12/2023 11:59 AM EDT): Secondary to fatty liver, CT scan in previous Hepatitis and other labs reviewed Pt agreed to be referred to dietitian and FU with her PCP Costochondritis 01/12/2023 Assessment & Plan (01/12/2023 11:59 AM EDT): I gave pt information about the condition Continue tylenol BID alternating with ibuprofen, she will be out of work today and tommorrow reassurance and FU with PCP PRN Renal cyst, left 01/11/2023 Fatigue 01/11/2023 Steatosis of liver 11/05/2022 Assessment & Plan (10/19/2023 2:02 PM EDT): Today extensive discussion was done about life style modifications I advise healthy diet (low calorie, low fat diet) and cardiovascular exercise Liver US ordered Repeat LFTs and lipid panel Patient will be contacted with results Adenoma of left adrenal gland 11/05/2022 Resolved Problems Problem Noted Date Diagnosed Date Resolved Date UTI (urinary tract infection) 11/05/2023 12/29/2023 Assessment & Plan (11/05/2023 2:21 PM EDT): Do not hold urine Urine culture ordered today Macrobid prescribed Encounter for screening labo ratory testing for COVID-19 virus in asymptomatic patient 01/11/2023 12/29/2023 Encounters Date Type Department Care Team Description 06/26/2024 2:00 PM EST Office Visit [facility] [address] [place] [id number] Mariel Perdomo MD Well adult health check (Primary Dx); Encounter for immunization; Dietary counseling; Exercise counseling; Overweight 06/26/2024 Travel 06/16/2024 Patient Outreach [address] [address] Mariel Perdomo MD Pre-visit Planning (SDOH screening completed on 11/03/2023) 04/27/2024 Patient Outreach [facility] [address] [place] [address] Mariel Perdomo MD Pre-visit Planning (SDOH screening completed on 11/03/2023) from Last 3 Months Immunizations Name Administration Dates Next Due Influenza injectable quadrivalent preservative f ree 05/04/2023,07/06/2019 Family History Medical History Relation Name Comments Cancer Cousin unknown type Relation Name Status Comments Cousin Other Social History Tobacco Use Types Packs/Day Years Used Date Smoking Tobacco: Never Passive Smoke Exposure: Never Smokeless Tobacco: Never Tobacco Cessation:Counseling Given: Not Answered Alcohol Use Standard Drinks/Week Comments Never 0 (1 standard drink = 0.6 oz pur e alcohol) Housing Stability Answer Date Recorded What is your housing situation today? I have brenda washburn 03/30/[address] you li ve. Do you have problems with any of the following? None of the above 03/30/2023 Food Insecurity Answer Date Recorded Within the past 12 months, y ou worried that your food would run out before you got money to buy more: Never True 03/30/2023 Within the past 12 months,th e food you bought just didn't last and you didn't have enough money to get more: Never True Transportation Answer Date Recorded In the past 12 months, has l ack of transportation kept you from medical appts, meetings, work or from getting things needed for daily living? No 03/30/2023 Utilities Answer Date Recorded In the past 12 months, has t he electric, gas, oil or water company threatened to shut off services in your home? No 03/30/2023 Depression Answer Date Recorded Patient Health Questionnaire-2 Score 0 06/26/2024 Comments No Sex and Gender Information Value Date Recorded Sex Assigned at Female 04/13/2022 10:34 AM EDT Legal Sex Female 10:34 AM EDT Gender Identity Female 04/13/2022 10:34 AM EDT Sexual Orientation Straight 04/13/2022 10 :34 AM EDT Last Filed Vital Signs Vital Sign Reading Time Taken Comments Blood Pressure 116/74 06/26/2024 2:23 PM EST Pulse 88 06/26/2024 2:23 PM EST Temperature 36.4 ??C (97.6 ??F) 06/26/2024 2:23 PM ES T Respiratory Rate 18 06/26/2024 2:23 PM EST Oxygen Saturation 99% 01/05/2024 9:17 AM EDT Inhaled Oxygen Concentration - - Weight 75.3 kg (166 lb) 06/26/2024 2:23 PM EST Height 162.6 cm (5' 4 ) 06/26/2024 2:23 PM EST Body Mass Index 28.49 06/26/2024 2:23 PM EST Plan of Treatment Health Maintenance Due Date Last Done Comments HIV Screening 1985 Alcohol/Substance Use Screening 1995 DTaP/Tdap/Td Vaccines (1 - Tdap) 2002 Hepatitis A Vaccines (1 of 2 - Risk 2-dose series) 2002 Hepatitis B Vaccines (1 of 3 - 19+ 3-dose series) 2002 COVID-19 Vaccine (3 - 2023-2 5 season) 2024 11/27/2020, 10/30/2020 Influenza Vaccine (#1) 2024 , 07/06/2019 Mammogram 05/12/2024 05/12/2023 SDOH Screening 11/02/2024 11/03/2023 Family Planning (PISQ) 01/04/2025 01/05/2024 Depression Screening 06/26/2025 06/26/2024, 06/26/2024 Tobacco Screening 06/26/2025 06/26/2024 Cervical Cancer Screening 01/04/2029 HPV/Cotest 01/04/2029 01/05/2024, 01/04/2019 Pap Smear 01/04/2029 01/05/2024 Zoster Vaccines (1 of 2) 2033 RSV Patients and Patients Aged 60 years or older (1 - 1-dose 75+ series) 2058 Hepatitis C Screening Completed 08/18/2021 HIB Vaccines Aged Out No longer eligi ble based on patient's age to complete this topic HPV Vaccines Aged Out No longer eligi ble based on patient's age to complete this topic IPV Vaccines Aged Out No longer eligi ble based on patient's age to complete this topic Meningococcal Vaccine Aged Out No marielena augustina eligible based on patient's age to complete this topic Pneumococcal Vaccine: Pediatrics (0 to 5 Years) and At-Risk Patients (6 to 64 Years) Aged Out No longer eligible b ased on patient's age to complete this topic RSV under 20 months Aged Out No longe r eligible based on patient's age to complete this topic Rotavirus Vaccines Aged Out No longer eligible based on patient's age to complete this topic Procedures Procedure Name Priority Date/Time Associated Diagnosis Comments THINPREP IMAGING PAP AND HPV MRNA E6/E7 Routine 01/05/2024 9:40 AM EDT BI MAMMOGRAM SCREENING TOMOSYNTHESIS BILATERAL Routine 05/12/2023 9:25 AM EST ZZZ HISTORICAL HEPATITIS C AB W/REFL TO HCV RNA, QN, PCR Routine 08/18/2021 8:28 AM EST from Last 3 Months or Most Recently Relevant to Health Maintenance Results * ThinPrep Imaging Pap and HPV mRNA E6/E7 (01/05/2024 9:40 AM EDT) HPV nRNA E6/E7 Not Detected Not Detected [facility] Comment:Methodology: Transcr iption-Mediated AmplificationThis assay detects E6/E7 viral messenger RNA (mRNA) from 14high-risk HPV types (16,18,31,33,35,39,45,51,52,56,58,59,66,68).Cervical sources are required for HPV testing.If a vaginal source from a patient who has had atotal hysterectomy with removal of cervix wassubmitted, please contact the testing laboratoryfor alternative testing options.For additional information, please refer tohttp://education.[employer]/faq/HNF776d8(This link if provided for information/educational purposes only.)THIS TEST WAS PERFORMED AT:[employer] [address] [id number] MAYES MD SOURCE: SEE NOTE [facility] Comment:None given Report Status: [facility] Clinical Information: SEE NOTE [facility] Comment:None given LMP: SEE NOTE [facility] Comment:NONE GIVEN Prev. PAP: SEE NOTE [facility] Comment:NONE GIVEN Prev. BX: SEE NOTE [facility] Comment:NONE GIVEN Statement Of Adequacy: SEE NOTE [facility] Comment:Satisfactory for maria luz luation.Endocervical/transformation zone componentpresent.Partially obscuring inflammation General Categorization: [facility] Interpretation/Result: SEE NOTE [facility] Comment:Cytology Results: Ne gative for intraepitheliallesion or malignancy. Cytology Comment SEE NOTE [facility] Comment:This Pap test has be en evaluated with computerassisted technology. Building Code Inspector: SEE NOTE [facility] Comment:KR, CT(ASCP)CT scree william location: [address] [address] Review Building Code Inspector: [facility] Pathologist [facility] PAP Infection SEE NOTE [facility] Comment:Shift in vaginal hannah ra suggestive of bacterialvaginosis. See Note SEE [facility] Comment:EXPLANATORY NOTE:The Pap is a screening test for cervical cancer. It isnot a diagnostic test and is subject to false negativeand false positive results. It is most reliable when asatisfactory sample, regularly obtained, is submittedwith relevant clinical findings and history, and whenthe Pap result is evaluated along with historic andcurrent clinical information. 01/05/2024 9:40 AM EDT 01/05/2024 5:22 PM EDT Lara SEE LAB PATHOLOGY ORDERABLES Final Result [facility] [address] [facility] [place] [phone] * BI Mammogram Screening Tomosynthesis Bilateral (05/12/2023 9:25 AM EST) Anatomical Region Laterality Modality Breast Bilateral Mammography 05/12/2023 9:25 AM EST Narrative 06/02/2023 3:43 PM EST ? [facility] ? [address] ?[place] [address] ? Mammography Report ? Signed ? Patient: Abdullahi Dean,Ada Y ?MR ?? #: [id number] ? : 1985 ?Acct:[id number] ? Age/Sex: 38 / F ?ADM Date: 05/12/ ? Loc: HO.MAMMO ? Attending Dr: Mariel Ram MD ? Ordering Physician: Mariel Perdomo MD ?Results: ?? 1Negative ? Date of Service: 05/12/ ?Follow Up: 1 Year From Orig ?? inal Mammogram ? Procedure(s): MM tomosynthesis screening BI ?? Accession Number(s): [id number] ? cc: Mariel Perdomo MD ? EXAMINATION: ?? MM SCREENING DIGITAL BREAST TOMOSYNTHESIS, BILATERAL ? CLINICAL INFORMATION: ? Screening. Asymptomatic. ? COMPARISON: ?? Mammography: This is a baseline study. ? TECHNIQUE: ?? Digital breast tomosynthesis is performed in both the craniocaudal and ?? mediolateral oblique views along with computer-aided detection (CAD). ?? Synthesized 2D images are generated from the tomosynthesis. ? FINDINGS: ?? The breasts are heterogeneously dense, which may obscure small masses ?? (ACR BI-RADS breast composition Category c). ? There are no significant masses, abnormal calcifications, or other ?? abnormalities. ? MM/MM tomosynthesis screening BI ?? IMPRESSION: ?? No mammographic evidence of malignancy. ? ASSESSMENT: ? BI-RADS BI-RADS 1 - Negative ? RECOMMENDATION: ?? Routine annual mammography screening. ? 1 year F/U ? This examination should not preclude the clinical evaluation of a ?? suspicious palpable abnormality. ? This patient's information was entered into a reminder system with a ?? target due date for their next mammogram. ? Dictated By: ?Carmel Tan MD ? Signed By: ?<Electronically signed by Carmel Tan MD in OV> ? 06/02/23 1539 ? DD/ 0925 ? TD/TT: ? Reptile Keeper: ? Procedure Note [place], Image - 06/02/2023 [facility] [address] [place] [address] Mammography Report Signed Patient: Ada aWlsh YMR #: [id number] : 1985Acct:[id number] Age/Sex: 38 / FADM Date: 05/12/23 Loc: HO.MAMMO Attending Dr: Mariel Ram MD Ordering Physician: Mariel Perdomo MDResults: 1Negative Date of Service: 05/12/23Follow Up: 1 Year From Orig inal Mammogram Procedure(s): MM tomosynthesis screening BI Accession Number(s): [id number] cc: Mariel Perdomo MD EXAMINATION: MM SCREENING DIGITAL BREAST TOMOSYNTHESIS, BILATERAL CLINICAL INFORMATION: Screening. Asymptomatic. COMPARISON: Mammography: This is a baseline study. TECHNIQUE: Digital breast tomosynthesis is performed in both the craniocaudal and mediolateral oblique views along with computer-aided detection (CAD). Synthesized 2D images are generated from the tomosynthesis. FINDINGS: The breasts are heterogeneously dense, which may obscure small masses (ACR BI-RADS breast composition Category c). There are no significant masses, abnormal calcifications, or other abnormalities. MM/MM tomosynthesis screening BI IMPRESSION: No mammographic evidence of malignancy. ASSESSMENT: BI-RADS BI-RADS 1 - Negative RECOMMENDATION: Routine annual mammography screening. 1 year F/U This examination should not preclude the clinical evaluation of a suspicious palpable abnormality. This patient's information was entered into a reminder system with a target due date for their next mammogram. Dictated By: Carmel Tan MD Signed By: <Electronically signed by Carmel Tan MD in OV> 06/02/23 1539 DD/ 0925 TD/TT: Reptile Keeper: Mariel Ram MD IMG BI PROCEDURES Fin al Result * HEPATITIS C AB W/REFL TO HCV RNA, QN, PCR (08/18/2021 8:28 AM EST) HEPATITIS C ANTIBODY NON-REACT ASHOK NON-REACT ASHOK [facility] INDEX 0.01 <1.00 [facility] Comment: ?? HCV antibody was non-reactive. There is no laboratory ?? evidence of HCV infection. ?? In most cases, no further action is required. However, if recent HCV exposure is suspected, a test for HCV RNA (test code 79444) is suggested. ?? For additional information please refer to http://education.[employer]/faq/YTB44l5 (This link is being provided for informational/ educational purposes only.) ?? 08/18/2021 8:28 AM EST Mariel Ram MD HISTORICAL/NON ORDERA BLE LABS Final Result [facility] [address] [place] [address], from Last 3 Months or Most Recently Relevant to Health Maintenance [place] [address] [place] [address] C3 Care Teams Revenue Cycle Specialist Relationship Specialty Start Date End Date Mariel Perdomo MD [address] [place] [phone] PCP - General Family Medicine 12/07/18
--- OUTSIDE RECORDS SUMMARY | 2024-07-11 16:26 | XMS_ITS | Encounter Summary ---
Author Organization [employer] Address [address] [facility] [address] [place] [address] Care Team Providers Care Necktie Maker Name Role Phone Mariel Perdomo MD Primary Care Provide r Reason for Visit * Reason Comments Pre-visit Planning SDOH screening compl eted on 11/03/2023 Encounter Details Date Type Department Care Team ([facility] st Contact Info) Description 06/16/2024 Patient Outreach [facility] [address] [place] [address] Mariel Perdomo MD [address] [place] [address] Pre-visit Planning (SDOH screening completed on 11/03/2023) Social History Tobacco Use Types Packs/Day Years Used Date Smoking Tobacco: Never Passive Smoke Exposure: Never Smokeless Tobacco: Never Alcohol Use Standard Drinks/Week Comments Never 0 [...] Date Recorded Patient Health Questionnaire-2 Score 0 01/12/2023 Comments No Sex and Gender Information Value Date Recorded Sex Assigned at Female 04/13/2022 10:34 AM EDT Legal Sex Female 10:34 AM EDT Gender Identity Female 04/13/2022 10:34 AM EDT Sexual Orientation Straight 04/13/2022 10 :34 AM EDT documented as of this encounter Progress Notes * Jeanne Zavala - 06/16/2024 9:38 AM EST CC Jeanne placed successful outbound call to patient for pre-visit planning. Patient name and confirmed. Patient confirms appt date and time, and has transportation. Biggest concern for appointment at this time is none Patient advised to bring to appointment a photo id and insurance card. Appropriate screenings completed in anticipation of appointment. documented in this encounter Plan of Treatment Not on file documented as of this encounter Visit Diagnoses Not on filedocumented in this encounter Care Teams Necktie Maker Relationship Specialty Start Date End Date Mariel Perdomo MD [address] [place] [phone] PCP - General Family Medicine 12/07/18 documented as of this encounter
--- OUTSIDE RECORDS SUMMARY | 2024-07-11 16:26 | XMS_ITS | Encounter Summary ---
Author Organization [employer] Address [address] [facility] [address] [place] [address] Care Team Providers Care Computer Architect Name Role Phone Mariel Perdomo MD Primary Care Provide r Encounter Details Date Type Department Care Team ([facility] st Contact Info) Description 06/26/2024 2:00 PM EST Office Visit [facility] MEDICINE [address] [place] [phone] Mariel Perdomo MD [address] [place] [phone] Well adult health check (Primary Dx); Encounter for immunization; Dietary counseling; Exercise counseling; Overweight Social History Tobacco Use Types Packs/Day Years [...] AM EDT documented as of this encounter Last Filed Vital Signs Vital Sign Reading Time Taken Comments Blood Pressure 116/74 06/26/2024 2:23 PM EST Pulse 88 06/26/2024 2:23 PM EST Temperature 36.4 ??C (97.6 ??F) 06/26/2024 2:23 PM ES T Respiratory Rate 18 06/26/2024 2:23 PM EST Oxygen Saturation - - Inhaled Oxygen Concentration - - Weight 75.3 kg (166 lb) 06/26/2024 2:23 PM EST Height 162.6 cm (5' 4 ) 06/26/2024 2:23 PM EST Body Mass Index 28.49 06/26/2024 2:23 PM EST documented in this encounter Progress Notes * Adenike Castañeda, MARIO - 06/26/2024 2:00 PM EST Subjective: Ada Dean is a 39 y.o. female who presents to the office for a physical exam. Current concerns: No concerns Patient Active Problem List Diagnosis Steatosis of liver Adenoma of left adrenal gland Renal cyst, left Fatigue Elevated LFTs Costochondritis Overweight (BMI 25.0-29.9) Encounter for preventive care Right foot pain Encounter for screening mammogram for malignant neoplasm of breast Vitamin D deficiency Allergic rhinitis Generalized abdominal pain Past Surgical History: Procedure Laterality Date TUBAL LIGATION Family History Problem Relation Name Age of Onset Cancer Cousin unknown type Social History Living situation: Ada lives with her 3 children -2 boys and a girl Safety: No fire arms in the home. Working smoke and fire alarm. Reports home and environment safe Employment/Education: Employed as a cashier office Diet/exercise: Eats variety of food including fruits and vegetables. No routine exercise Substance use: denies tobacco/drug/ alcohol use Sexual preference: Men Sexual activity: Sexually active with same partner for 6 yrs Dental: Dental home Vision: Vision home to book appointment with eye doctor Last menstrual period: 06/23/24. Regular cycle last 4 days with cramps. Patient declines treatment and states ' am used to it' Mammogram: Last mammogram 05/2024 Mental health: Denies SI,harming self or others No Known Allergies Current Outpatient Medications Medication Sig Dispense Refill D3 Super Strength 50 MCG (1999 UT) capsule TAKE 1 CAPSULE BY MOUTH EVERY DAY IN THE MORNING 90 capsule 1 No current facility-administered medications for this visit. Health Maintenance Topic Date Due HIV Screening Never done Alcohol/Substance Use Screening Never done DTaP/Tdap/Td Vaccines (1 - Tdap) Never done Hepatitis B Vaccines (1 of 3 - 19+ 3-dose series) Never done Hepatitis A Vaccines (1 of 2 - Risk 2-dose series) Never done Influenza Vaccine (1) 02/13/2024 COVID-19 Vaccine ( - season) 2024 Mammogram 05/12/2024 SDOH Screening 11/02/2024 Depression Screening 06/26/2025 Tobacco Screening 06/26/2025 Cervical Cancer Screening 01/04/2029 Zoster Vaccines (1 of 2) 2033 RSV Patients and Patients Aged 60 years or older (1 - 1-dose 75+ series) 2058 Hepatitis C Screening Completed RSV under 20 months Aged Out HIB Vaccines Aged Out IPV Vaccines Aged Out Meningococcal Vaccine Aged Out Rotavirus Vaccines Aged Out HPV Vaccines Aged Out Pneumococcal Vaccine: Pediatrics (0 to 5 Years) and At-Risk Patients (6 to 64 Years) Aged Out Review of Systems Constitutional: Negative for activity change, appetite change, fatigue and fever. HENT: Negative for congestion, ear discharge, ear pain, rhinorrhea and sore throat. Eyes: Negative for discharge, redness and itching. Respiratory: Negative for cough, shortness of breath and wheezing. Cardiovascular: Negative for chest pain. Gastrointestinal: Negative for abdominal pain, blood in stool, constipation, diarrhea, nausea and vomiting. Endocrine: Negative for polydipsia and polyuria. Genitourinary: Negative for decreased urine volume, difficulty urinating, dyspareunia, hematuria and menstrual problem. Musculoskeletal: Negative for arthralgias, gait problem and joint swelling. Skin: Negative for rash. Allergic/Immunologic: Negative for environmental allergies and food allergies. Neurological: Negative for dizziness, weakness and headaches. Hematological: Does not bruise/bleed easily. Psychiatric/Behavioral: Negative for behavioral problems, sleep disturbance and suicidal ideas. Objective Visit Vitals BP 116/74 (BP Location: Left arm, Patient Position: Sitting, BP Cuff Size: Adult) Pulse 88 Temp 97.6 ??F (36.4 ??C) (Oral) Resp 18 Ht 5' 4 (1.626 m) Wt 166 lb (75.3 kg) BMI 28.49 kg/m?? OB Status Having periods Smoking Status Never BSA 1.84 m?? Physical Exam Constitutional: Appearance: Normal appearance. HENT: Head: Normocephalic and atraumatic. Right Ear: Tympanic membrane, ear canal and external ear normal. Left Ear: Tympanic membrane, ear canal and external ear normal. Nose: Nose normal. No congestion. Mouth/Throat: Mouth: Mucous membranes are moist. Pharynx: Oropharynx is clear. Eyes: Extraocular Movements: Extraocular movements intact. Pupils: Pupils are equal, round, and reactive to light. Cardiovascular: Rate and Rhythm: Normal rate and regular rhythm. Pulses: Normal pulses. Heart sounds: Normal heart sounds. No murmur heard. Pulmonary: Effort: Pulmonary effort is normal. Breath sounds: Normal breath sounds. No wheezing. Chest: Chest wall: No tenderness. Abdominal: General: Abdomen is flat. Bowel sounds are normal. Palpations: Abdomen is soft. Tenderness: There is no guarding or rebound. Musculoskeletal: General: Normal range of motion. Cervical back: Normal range of motion. Right lower leg: No edema. Left lower leg: No edema. Skin: General: Skin is warm and dry. Capillary Refill: Capillary refill takes less than 2 seconds. Findings: No bruising. Neurological: General: No focal deficit present. Mental Status: She is alert and oriented to person, place, and time. Cranial Nerves: No cranial nerve deficit. Sensory: No sensory deficit. Psychiatric: Mood and Affect: Mood normal. Behavior: Behavior normal. Thought Content: Thought content normal. Judgment: Judgment normal. Routine Screening and Health Maintenance Optometry: Has a vision home. To book appointment with doctor Dental: Has home dental Lab Review: orders written for new lab studies as appropriate; see orders Immunization:Covid, flu and Tdap vaccines, Patient declines Problem List Items Addressed This Visit None Visit Diagnoses Well adult health check - Primary Relevant Orders Lipid Panel Basic Metabolic Panel Hepatic Function Panel TSH W/Reflex to FT4 Encounter for immunization Relevant Orders TDAP VACCINE 7 yrs + Dietary counseling Exercise counseling Overweight Plan Routine lab work ordered Eat 3 meals a day, especially breakfast Eat healthy and focus on healthyfood choices daily fruits, vegetables, grains, low fat milk, low carbohydrate and fat Maintain healthy weight as this will lower your risk for many health problems. Be physically active at least 30 minutes a day Keep up to date on your vaccines Next mammogram id due 05/2024, call the office if you do not get scheduled Schedule appointment with your dentist and vision clinic for routine yearly visit Next physical 06/2025 [facility] QUALITY ASSURANCE DIRECTOR Attestation QUALITY ASSURANCE DIRECTOR Resident Attestation: Patient was seen and evaluated by Adenike MARTIN , in collaboration with Mariel Ram MD who has reviewed my assessment and plan. I, Mariel Ram MD , have reviewed the resident's note and agree with the assessment &plan of care as documented above. Visit Conducted in: Kiswahili Translation by: Provided by [facility] staff member , documented in this encounter Plan of Treatment Scheduled Orders Name Type Priority Associated Diagnoses Orde r Schedule Lipid Panel Lab Routine Well adult health check Ordered: 06/26/2024 Basic Metabolic Panel Lab Routine Well adult health check Expected: 06/26/2024 (Approximate), Expires: 06/26/2025 Hepatic Function Panel Lab Routine Well adult health check Expected: 06/26/2024 (Approximate), Expires: 06/26/2025 TSH W/Reflex to FT4 Lab Routine Well adult health check Expected: 06/26/2024 (Approximate), Expires: 06/26/2025 documented as of this encounter Visit Diagnoses Diagnosis Well adult health check- Primary Unspecified general medical examination Encounter for immunization Dietary counseling Dietary surveillance and counseling Exercise counseling Overweight documented in this encounter Care Teams Computer Architect Relationship Specialty Start Date End Date Mariel Perdomo MD [address] [place] [address] PCP - General Family Medicine 12/07/18 documented as of this encounter
--- OUTSIDE RECORDS SUMMARY | 2024-07-11 16:26 | XMS_ITS | Encounter Summary ---
Author Organization [employer] Address [address] [facility] [address] [place] [address] Care Team Providers Care Electro Mechanical Technologist Name Role Phone Mariel Perdomo MD Primary Care Provide r Encounter Details Date Type Department Care Team (Latest Contact Info) Description 06/26/2024 Travel Social History Tobacco Use Types Packs/Day Years [...] AM EDT documented as of this encounter Plan of Treatment Not on file documented as of this encounter Visit Diagnoses Not on filedocumented in this encounter Care Teams Electro Mechanical Technologist Relationship Specialty Start Date End Date Mariel Perdomo MD [address] [place] [phone] PCP - General Family Medicine 12/07/18 documented as of this encounter
== END 2024-07-11 15:55 | disposition home or self-care (01) ==
PROVIDERS: PCP Internal Medicine; Visit Provider Student in an Organized Health Care Education/Training Program
DX: D35.02 Benign neoplasm of left adrenal gland (principal)
CPT/HCPCS: 99213

== ENCOUNTER → 2024-07-11 15:35 | Outpatient (BNVA) | payer MEDICAID, SELFPAY | PROVIDERS: PCP Internal Medicine; Visit Provider Student in an Organized Health Care Education/Training Program | DX: D35.02 Benign neoplasm of left adrenal gland (principal) | CPT/HCPCS: 99212 ==

== ENCOUNTER 2024-11-22 16:14 | Outpatient (REF) | payer MEDICAID, SELFPAY ==
--- NOTE | ~2024-11-22 | XR_ITS ---
EXAMINATION: XR FOOT, RIGHT CLINICAL INFORMATION: persistent R foot pain COMPARISON: None available. TECHNIQUE: AP, lateral, and oblique views of the right foot. FINDINGS: The bones and soft tissues are normal. No fracture. Alignment is anatomic. Joint spaces are maintained. XR/XR foot RT min 3V IMPRESSION: Unremarkable right foot. Electronically signed by: Jayme Rai MD 11/22/2024 05:21 PM EDT
--- OUTSIDE RECORDS SUMMARY | 2024-11-22 18:16 | XMS_ITS | Data Portability ---
Author Organization [place] [facility], Allergy Address [address] [address] Assessment Encounter Date Assessment Date Assessment LastModified by Organization Details LastModified Time 08/23/2024 08/23/2024 The left neck mass was evaluated with CT scan in summer and it identified several small lymph nodes within and around parotid. Her facial nerve was intact and no masses were palpable in her parotids. She clenched her teeth and a 2cm area of muscle flexed deep to the gland. I gave her reassurance that the swelling is only the muscles deep to the saliva gland and in fact it is present bilaterally. [email or web address] Not available 08/23/2024 11:19:48 Plan of Treatment Reminders Order Date Submit Date Provider Last Modified By Organization Details Last Modified Time Details Appointments None record ed. Lab None record ed. Referral None record ed. Procedures None record ed. Surgeries None record ed. Imaging None record ed. Medication Orders None record ed. Patient TargetsNo targets recorded. Patient InstructionsNo instructions recorded. Reason for Referral None Reported. Problems Name Problem SNOMED Code Status Onset Date Resolution Date Notes Provider Name and Address Organization Details Recorded Time Mass of neck [id number] Active 025 JOSEPH ROWLAND MD [address] [facility],[place] [address], [place], [address] , [place] - [facility] 08/23/2024 11:18:09 Problem Notes None recorded. Medical Equipment None Reported. Allergies No known drug allergies Medications Name Sig Start Date Stop Date Status Note LastModified by Organization Details LastModified Time metronidazo le 0.75 % (37.5 mg/5 gram) vaginal gel USE ONE APPLICATO RFUL VAGINALLY AT BEDTIME FOR 5 DAYS 08/23 completed Not Available Not Available Not Available Vitals Date Recorded Body height Provider Name an d Address Organization Details Last Updated DateTime 08/23/2024 162.56 cm MICHELLE MCKENNA [place] [facility] 08/23/2024 11:08:18 Social History None recorded. Functional Status None recorded. Mental Status None recorded. Family History Nothing Reported. Medical History No medical history recorded. Gynecological HistoryNo gynecological history recorded. Obstetrics History GPAL:G 0 P 0 0 0 0 Past Encounters Encounter ID Performer Location Encounter Start Date Encounter Closed Date Diagnosis/Indication Diagnosis SNOMED-CT Code Diagnosis ICD10 Code Diagnosis Note [id number] JOSEPH ROWLAND MD [facility] [address] [place] [address] 08/23/2024 10:48:23 08/23/2024 11:18:57 Mass of neck 572197791 R22.1 Health Concerns Section Related Observation LastModified by Organization Detai ls LastModified Time None Recorded Concern Status LastModified by Organization Details LastModified Time None Recorded Advance Directives Directive None Recorded Payers Insurance Date Sequence Insurance Name Policy Number Policy Cervantes Covered Member ID Cervantes Member ID Guarantor Name 08/23/2024 1 [place]: [facility] [id number] Ada Abdullahi Notes Date Note Type Note Provider Name and Address Organization Details Recorded Time 08/23/2024 text/html IPad - SpanishLe ft parotid massit has not changed size since summerwas only noted on a photo with her motherno pain, no associated skin infections 01/18/2024 CT neck with contrast at [facility] small intraparotid lymph nodes with normal morphology, largest 7 mm superior left JOSEPH ROWLAND MD [address] [place] [address], [id number], [place] - [facility] 08/23/2024 11:19:58 OBGyn Episode No OBEpisode recorded.
== END 2024-11-22 16:15 | disposition home or self-care (01) ==
LOC: HO.HHCX 16:14
PROVIDERS: Visit Provider Family Medicine
DX: M79.671 Pain in right foot (principal); G89.29 Other chronic pain
CPT/HCPCS: 73630

== ENCOUNTER → 2024-11-22 16:14 | Outpatient (BNV) | payer MEDICAID, SELFPAY | PROVIDERS: Visit Provider Radiology Diagnostic Radiology | DX: M79.671 Pain in right foot (principal) | CPT/HCPCS: 73630 ==